=== PATIENT | female | born 1995 | race Caucasian/White ===

== ENCOUNTER → 2018-05-21 12:07 | Outpatient (CLI) | payer BC, SELFPAY | PROVIDERS: Family Provider Family Medicine; PCP Family Medicine; Visit Provider Family Medicine | DX: M95.4 Acquired deformity of chest and rib (principal) | CPT/HCPCS: 71046 ==

== ENCOUNTER → 2018-06-05 12:46 | Outpatient (CLI) | payer BC, SELFPAY ==
--- NOTE | 2018-06-05 12:58 | CT_ITS ---
STUDY: CT CHEST WITHOUT CONTRAST REASON FOR EXAM: Female, 23 years old. Bony prominence. Question rib deformity. RADIATION DOSAGE (If Supplied By Facility): CTDIvol = ( 8.50 ) mGy, DLP = ( 290.94 ) mGycm TECHNIQUE: Transaxial imaging was performed without the administration of intravenous contrast material. Multiplanar coronal and sagittal images were reformatted. Individualized dose optimization techniques were used for this CT. COMPARISON: Chest, May 21, 2018. FINDINGS: The lungs are normal. There is no demonstrated pleural abnormality. Normal heart and pericardium. Normal mediastinum. Normal hilar regions. Normal unenhanced pulmonary arteries. Normal aorta arch and descending thoracic aorta. There is no evidence of fracture. There is mild anterior bowing of the sternal 2 cm the congenital. There is no demonstrated abnormality of the visualized upper abdomen. 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 The study is otherwise unremarkable. Electronically Signed: Reggie Villa DO at 17:04 EDT Tel [phone], Service support ,
== END ==
PROVIDERS: Family Provider Family Medicine; PCP Family Medicine; Visit Provider Family Medicine
DX: M89.8X9 Other specified disorders of bone, unspecified site (principal)
CPT/HCPCS: 71250

== ENCOUNTER → 2021-01-12 | Outpatient (CLI) | payer OTHER, SELFPAY ==
[2022-01-17 16:59] LABS: HPV Reflexed? NOT INDICATED
== END | disposition home or self-care (01) ==
LOC: LABSPEC 01-13 06:46
PROVIDERS: Referring Provider Obstetrics & Gynecology; Visit Provider Obstetrics & Gynecology
DX: Z12.4 Encounter for screening for malignant neoplasm of cervix (principal)
CPT/HCPCS: 88175; G0145

== ENCOUNTER → 2021-03-24 15:30 | Outpatient (CLI) | payer OTHER, SELFPAY ==
[2015-03-04 07:01] VITALS: BMI 30.4
[2021-03-24 17:44] LABS: hCG Titer Quant., Serum 455 mIU/mL (1-3)
== END ==
PROVIDERS: Referring Provider Obstetrics & Gynecology; Visit Provider Obstetrics & Gynecology
DX: Z34.90 Encounter for supervision of normal pregnancy, unspecified, unspecified trimester (principal)
CPT/HCPCS: 36415; 84702

== ENCOUNTER → 2021-03-26 14:51 | Outpatient (CLI) | payer OTHER, SELFPAY ==
[2015-03-04 07:01] VITALS: BMI 30.4
[2021-03-26 16:35] LABS: hCG Titer Quant., Serum 947 mIU/mL (1-3)
== END ==
PROVIDERS: Referring Provider Obstetrics & Gynecology; Visit Provider Obstetrics & Gynecology
DX: N91.2 Amenorrhea, unspecified (principal)
CPT/HCPCS: 36415; 84702

== ENCOUNTER → 2021-04-13 10:56 | Outpatient (CLI) | payer OTHER, SELFPAY ==
[2015-03-04 07:01] VITALS: BMI 30.4
--- NOTE | 2021-04-13 11:02 | US_ITS ---
STUDY: FIRST TRIMESTER OBSTETRICAL ULTRASOUND REASON FOR EXAM: Female, 26 years old early LMP: Unknown. TECHNIQUE: Transvaginal TECHNICAL QUALITY: Adequate. PRIOR ULTRASOUND: None. FINDINGS: There is visualization of a single gestational sac in a normal intrauterine position. The mean sac diameter (MSD) measures 2.2 cm, indicating an estimated gestational age (EGA) of 7 weeks, 0 days. The gestational sac shape is within normal limits. Small subchorionic hematoma measures 1.3 x 1.8 cm. There is a visualized yolk sac. The yolk sac measures 4.5 mm. The placenta is non-visualized due to early . There is visualization of a live embryo. The crown-rump length (CRL) measures 8.6 mm, indicating an estimated gestational age (EGA) of 6 weeks, 6 days. There is demonstrated cardiac activity with a heart rate of 127 bpm. The estimated date of delivery (JB) by US is 12/01/2021. The uterus measures 10.0 x 5.9 x 4.9 cm. There is no demonstrated uterine fibroid. The cervix is closed. The right ovary measures 2.9 x 2.3 x 1.8 cm. There is no right ovarian cyst. There is no visualized right adnexal mass or complex lesion. The left ovary measures 3.5 x 3.5 x 2.6 cm. There is no left ovarian cyst. There is no visualized left adnexal mass or complex lesion. There is no fluid in the cul de sac. US/Transvaginal w/Preg US IMPRESSION: 1. Single live intrauterine correlating to gestational age of 6 weeks and 6 days. 2. 1.8 cm subchorionic fluid collection/hematoma. Electronically Signed: Sp Berg MD (Brooks) at 14:14 EDT , Service support ,
== END ==
PROVIDERS: PCP Family Medicine; Referring Provider Obstetrics & Gynecology; Visit Provider Obstetrics & Gynecology
DX: Z78.9 Other specified health status (principal)
CPT/HCPCS: 76817

== ENCOUNTER → 2021-04-29 10:49 | Outpatient (CLI) | payer OTHER, SELFPAY ==
[2021-04-29 09:56] VITALS: BMI 30.4
[2021-04-29 11:13] LABS: Absolute Lymphocyte Count 1.88 X10^3/uL (0.83-4.51); Absolute Neutrophil Count 5.4 X10^3/uL (2.0-7.7); Basophil# 0.05 X10^3/uL; Basophil% 0.6 % (0-1); Eosinophil# 0.08 X10^3/uL; Hematocrit 39.7 % (37-47); Hemoglobin 13.6 g/dL (12.0-15.0); Lymphocyte # 1.88 X10^3/ul (0.83-4.51); Lymphocyte % 23.2 % (19-41); Mean Corp Hgb Conc 34.3 g/dL (32-36); Mean Corpuscular Hgb 29.1 pg (27.0-32.0); Mean Platelet Vol. 11.1 fl (6.2-12.0); Monocyte# 0.67 X10^3/uL; Monocyte% 8.3 % (0-10); NRBC Flagged by Analyzer 0 % (0-5); Neutrophil % 66.5 % (47-70); Platelet Count 266 K/mm3 (150-450); RBC Distribution Width CV 11.8 % (11.6-14.6); RBC Distribution Width SD 35.7 fl (35.1-43.9); Red Blood Count 4.67 M/mm3 (4.2-5.4); White Blood Count 8.1 K/mm3 (4.4-11.0)
[2021-04-29 12:33] LABS: HIV - WCH Non-Reactive (Nonreactive); Hepatitis B Surface Antigen Non-Reactive (Nonreactive); Hepatitis C Antibody Non-Reactive (Nonreactive); Rubella IgG Reactive (Nonreactive); Syphilis Antibodies Non-reactive
[2021-05-01 03:07] LABS: Chlamydia By Nucleic Acid AMP Negative (Negative)
[2021-05-01 08:34] LABS: Gonococcus By Nucleic Acid AMP Negative (Negative)
== END ==
PROVIDERS: PCP Family Medicine; Referring Provider Obstetrics & Gynecology; Visit Provider Obstetrics & Gynecology
DX: Z34.80 Encounter for supervision of other normal pregnancy, unspecified trimester (principal)
CPT/HCPCS: 36415; 85025; 86703; 86762; 86780; 86803; 86850; 86900; 86901; 87340; 87491; 87591

== ENCOUNTER → 2021-09-07 12:03 | Outpatient (CLI) | payer OTHER, SELFPAY ==
[2021-09-07 12:40] LABS: Absolute Lymphocyte Count 2.07 X10^3/uL (0.83-4.51); Absolute Neutrophil Count 6.7 X10^3/uL (2.0-7.7); Basophil# 0.09 X10^3/uL; Basophil% 0.9 % (0-1); Eosinophil# 0.12 X10^3/uL; Eosinophils% 1.2 % (0-5); Hemoglobin 12.2 g/dL (12.0-15.0); Lymphocyte # 2.07 X10^3/ul (0.83-4.51); Lymphocyte % 20.8 % (19-41); Mean Corp Hgb Conc 33.9 g/dL (32-36); Mean Corpuscular Hgb 30.7 pg (27.0-32.0); Mean Corpuscular Volume 90.7 fL (81-99); Mean Platelet Vol. 10.4 fl (6.2-12.0); NRBC Flagged by Analyzer 0 % (0-5); Neutrophil # 6.72 X10^3/uL (2.7-7.7); Neutrophil % 67.8 % (47-70); Platelet Count 275 K/mm3 (150-450); RBC Distribution Width CV 12.3 % (11.6-14.6); RBC Distribution Width SD 40.7 fl (35.1-43.9); Red Blood Count 3.97 M/mm3 (4.2-5.4); White Blood Count 9.9 K/mm3 (4.4-11.0)
[2021-09-07 13:00] LABS: Glucose Challenge Gest 1H 50g 121 mg/dL (70-140)
== END ==
PROVIDERS: Referring Provider Obstetrics & Gynecology; Visit Provider Obstetrics & Gynecology
DX: Z34.92 Encounter for supervision of normal pregnancy, unspecified, second trimester (principal); Z13.1 Encounter for screening for diabetes mellitus
CPT/HCPCS: 36415; 82950; 85025

== ENCOUNTER 2021-11-05 10:38 | Outpatient (CLI) | payer OTHER, SELFPAY | END 2021-11-05 23:59 | disposition home or self-care (01) | LOC: LABSPEC 10:40 | PROVIDERS: Visit Provider Obstetrics & Gynecology | DX: O99.891 Other specified diseases and conditions complicating pregnancy (principal); R82.90 Unspecified abnormal findings in urine; Z3A.32 32 weeks gestation of pregnancy | CPT/HCPCS: 87081; 87086; 87088 ==

== ENCOUNTER 2021-11-26 10:21 | Outpatient (CLI) | payer OTHER, SELFPAY ==
[2021-11-26 10:34] LABS: Absolute Lymphocyte Count 2.13 X10^3/uL (0.83-4.51); Absolute Neutrophil Count 6.1 X10^3/uL (2.0-7.7); Basophil# 0.06 X10^3/uL; Basophil% 0.6 % (0-1); Eosinophil# 0.12 X10^3/uL; Eosinophils% 1.3 % (0-5); Hematocrit 38.6 % (37-47); Hemoglobin 12.9 g/dL (12.0-15.0); Lymphocyte # 2.13 X10^3/ul (0.83-4.51); Lymphocyte % 22.7 % (19-41); Mean Corp Hgb Conc 33.4 g/dL (32-36); Mean Corpuscular Hgb 29.3 pg (27.0-32.0); Mean Corpuscular Volume 87.7 fL (81-99); Mean Platelet Vol. 11.3 fl (6.2-12.0); Monocyte# 0.83 X10^3/uL; Monocyte% 8.8 % (0-10); NRBC Flagged by Analyzer 0 % (0-5); Neutrophil # 6.06 X10^3/uL (2.7-7.7); Neutrophil % 64.7 % (47-70); Platelet Count 249 K/mm3 (150-450); RBC Distribution Width CV 12.9 % (11.6-14.6); RBC Distribution Width SD 41.2 fl (35.1-43.9); White Blood Count 9.4 K/mm3 (4.4-11.0)
[2021-11-26 10:48] LABS: Protein, Urine (Random) < 6.0 mg/dL (<11.9); Protein:Creat Ratio 192 mg/g CRE (0-200)
[2021-11-26 10:49] LABS: ALB/GLOB Ratio 0.6 RATIO (0.9-2.4); AST(SGOT) 15 U/L (15-37); Alanine Aminotransfer ALT/SGPT 16 U/L (13-56); Albumin, Serum 2.7 g/dL (3.2-5.0); Alkaline Phosphatase 123 U/L (45-117); Anion Gap 6 (5-15); BUN 12 mg/dL (7-18); BUN/Creat Ratio 15.6 RATIO (10-20); Calcium,Total 9.6 mg/dL (8.5-10.1); Chloride 105 mmol/L (98-107); Creatinine, Serum 0.77 mg/dL (0.55-1.02); EST Glomerular Filtration Rate 95 mL/min (>60); Est Glom Filt Rate - Afr Amer 114 mL/min (>60); Globulin 4.8 g/dL (2.2-4.2); Glucose 84 mg/dL (74-106); Potassium 4.5 mmol/L (3.5-5.1); Protein, Total 7.5 g/dL (6.4-8.2); Sodium Level 134 mmol/L (136-145)
== END 2021-11-26 23:59 | disposition home or self-care (01) ==
LOC: PAVLAB 10:22
PROVIDERS: Referring Provider Obstetrics & Gynecology; Visit Provider Obstetrics & Gynecology
DX: H53.9 Unspecified visual disturbance (principal)
CPT/HCPCS: 36415; 80053; 82570; 84156; 85025

== ENCOUNTER 2021-12-02 07:30 | Inpatient (IN) | payer OTHER, SELFPAY ==
[2021-12-02] VITALS (30 sets, daily range): BP systolic 94–136; BP diastolic 55–89; PULSE 67–109; RESP 15–16; TEMP 36.2–37.1; O2SAT 97–100; BMI 31.0
--- NOTE | 2021-12-02 07:39 | HP.PCM.OB_ITS ---
HPI - General General Date of Admission: 12/02/21 HPI Narrative LINDA JORDAN, is a 26 @ 40 weeks 1 day who presents to aL& D with painful contractions. She denies loss of fluid, vaginal bleeding, or dec fm. She states that the pains are becoming worse and she would like an epidural. Maternal Data Information JB Calculator Estimated Delivery Date Method Current WG Current Estimate 12/01/21 Ultrasound #1 40w 1d PFSH PFSH Medical History History of kidney stones Home Medications vit,[id number] [Prenatabs FA] 1 tab PO DAILY 03/04/15 [History Last Taken 11/30/21 08:00 1 tab] breast pump #1 ea 10/13/21 [Rx Last Taken Unknown] Allergy/AdvReac Type Severity Reaction Status Date / Time No Known Allergies Allergy Verified 12/02/21 07:28 Family History Grandfather Diabetes Social History adopted: No household members: spouse and children number of children: 1 Smoking Status: Never smoker alcohol intake: never substance use type: does not use History 2 Elective abortions Hx Para 1 Spontaneous abortions Hx # Term Pregnancies 1 Ectopic pregnancies Hx # Pregnancies Multiple births # of living children 1 Past Pregnancies Del. Date Name GA/Weeks Outcome Route Bth Weight Infant Gen Labor Lgth Anesthesia Del [facility] Provider FOB 03/05/15 [place] 42 live - full term 7.5 lbs Female 20 hr/induced epidural [facility] Efrain Iván Visit Details Expected Delivery Route/Plan Labor Preferences- CB/BF classes: yes labor support person: Kurt labor intervention preferences: [] pain management options preferred: epidural cut cord/dad catch: cord : yes PP control planned: discussed discussed possible routes of delivery and associated risks: [] special requests: [] Plans Covid status: counseled regarding risk of covid in vs vaccination and declined vaccination Flu vaccine: declined Tdap vaccine: declined Rhogam: NA LARC form signed: DECLINED movement and labor precautions reviewed. Problem list reviewed and updated with the most current plan of care details and appropriate orders placed. Relevant counseling for the gestational age provided. Continue routine care and follow up unless otherwise noted in visit notes/problem list details OB Flowsheet Initial Weight: 143 lb Date -?-?-?-?-?-?-?-?-?-?-?-?- EGA Weight BP Urine Prot -?-?-?-?-?-?-?-?-?-?-?-?- Glucose FHR FuHt Pres Dilation -?-?-?-?-?-?-?-?-?-?-?-?- Effaced St Visit Note 04/29/21 -?-?-?-?-?-?-?-?-?-?-?-?- 9w 1d 143 lb 4 oz (+4 oz) 108/84 -?-?-?-?-?-?-?-?-?-?-?-?- 171 -?-?-?-?-?-?-?-?-?-?-?-?- GP - CRL 27mm co nsistent with prior US 05/28/21 -?-?-?-?-?-?-?-?-?-?-?-?- 13w 2d 141 lb 6 oz (-1 lb 10 oz) 118/78 Negative -?-?-?-?-?-?-?-?-?-?-?-?- Negative 160 -?-?-?-?-?-?-?-?-?-?-?-?- GP - no cramping or bleeding. Anatomy scan ordered. 06/25/21 -?-?-?-?-?-?-?-?-?-?-?-?- 17w 2d 141 lb 8 oz (-1 lb 8 oz) 108/80 Negative -?-?-?-?-?-?-?-?-?-?-?-?- Negative 160 -?-?-?-?-?-?-?-?-?-?-?-?- GP - no cramping or bleeding. Anatomy scan scheduled for 07/0807/23/21 -?-?-?-?-?-?-?-?-?-?-?-?- w 2d 149 lb (+6 lb) 104/62 Negative -?-?-?-?-?-?-?-?-?-?-?-?- Negative 145 -?-?-?-?-?-?-?-?-?-?-?-?- Sm- no vb lof go od fm no regular ctx 08/18/21 -?--?-?-?-?-?-?-?-?-?-?-?- 25w 0d 152 lb 8 oz (+9 lb 8 oz) 134/78 Negative -?-?-?-?-?-?-?-?-?-?-?-?- Negative 153 -?-?-?-?-?-?-?-?-?-?-?-?- MH-No VB, LOF. G ood FM. 09/10/21 -?-?-?-?-?-?-?-?-?-?-?-?- 28w 2d 157 lb (+14 lb) 106/80 Negative -?-?-?-?-?-?-?-?-?-?-?-?- Negative 145 28 -?-?-?-?-?-?-?-?-?-?-?-?- SM- no vb lof go od fm no regular ctx 09/23/21 -?-?-?-?-?-?-?-?-?-?-?-?- 30w 1d 158 lb 2 oz (+15 lb 2 oz) 102/78 Negative -?-?-?-?-?-?-?-?-?-?-?-?- Negative 140 30 Cephalic -?-?-?-?-?-?-?-?-?-?-?-?- SM- no vb lof go od fm no reuglar ctx 10/08/21 -?-?-?-?-?-?-?-?-?-?-?-?- 32w 2d 160 lb 2 oz (+17 lb 2 oz) 100/70 Negative -?-?-?-?-?-?-?-?-?-?-?-?- Negative 140 32 Cephalic -?-?-?-?-?-?-?-?-?-?-?-?- SM- no vb lof go od fm no regular ctx 11/05/21 -?-?-?-?-?-?-?-?-?-?-?-?- 36w 2d 167 lb (+24 lb) 122/76 Negative -?-?-?-?-?-?-?-?-?-?-?-?- Negative 160 36 Cephalic 1 -?-?-?-?-?-?-?-?-?-?-?-?- SM- no vb lof go od fm no regular ctx, lost father in law this last week, coping well 11/12/21 -?-?-?-?-?-?-?-?-?-?-?-?- 37w 2d 167 lb 2 oz (+24 lb 2 oz) 118/88 Negative -?-?-?-?-?-?-?-?-?-?-?-?- Negative 140 37 Cephalic -?-?-?-?-?-?-?-?-?-?-?-?- Sm- no vb lof go od fm no regular ctx 11/19/21 -?-?-?-?-?-?-?-?-?-?-?-?- 38w 2d 165 lb (+22 lb) 100/82 Negative -?-?-?-?-?-?-?-?-?-?-?-?- Negative 145 38 Cephalic 1 -?-?-?-?-?-?-?-?-?-?-?-?- 60 -2 SM- no vb lof good fm no regular ctx 11/26/21 -?-?-?-?-?-?-?-?-?-?-?-?- 39w 2d 167 lb 4 oz (+24 lb 4 oz) 119/86 Negative -?-?-?-?-?-?-?-?-?-?-?-?- Negative 136 37 Cephalic 2 -?-?-?-?-?-?-?-?-?-?-?-?- 80 -2 JV-no lof, vaginal bleeding, or dec fm. pt has some complaints of warm feeling in neck and soem blurriness that she is blaming on her contacts. her diastolic bp was slightly elevated. sending for [facility] labs. 12/02/21 -?-?-?-?-?-?-?-?-?-?-?-?- 40w 1d 169 lb 8.568 oz (+26 lb 8.568 oz) 131/89 -?-?-?-?-?-?-?-?-?-?-?-?- -?-?-?-?-?-?-?-?-?-?-?-?- NST FHR Rate Baby A Baseline: 140 Variability:: Moderate Accelerations:: 15 x 15 Decelerations:: None NST Reactive:: Yes FHR Category:: Category I Uterine Activity:: q 2 minutes ROS Constitutional Constitutional: Denies change in weight, fatigue, fever(s), headache(s), poor appetite or weakness Eyes Eyes: Denies blurry vision, change in vision, seeing flashes or spots in vision ENT HEENT: Denies dizziness, headache(s), loss taste/smell or sore throat Cardiovascular Cardiovascular: Denies chest pain, dizziness, dyspnea, irregular heart rhythm, leg edema, palpitations, rapid heart rate or vomiting Respiratory/Chest Respiratory/Chest: Denies chest tightness, cough, dyspnea or breast pain Gastrointestinal Gastrointestinal: Denies abdominal pain, anorexia, constipation, cramping, diarrhea, hemorrhoids, vomiting or weight changes Genitourinary Genitourinary: Denies dysuria, flank pain, genital lesions, genital pain, urinary frequency or urinary urgency Musculoskeletal Musculoskeletal: Denies back pain, difficulty walking, joint pain, limited range of motion, muscle cramps or numbness Integumentary Integumentary: Denies lesions or unusual bruising Neurologic Neurologic: Denies abnormal movements, abnormal speech, dizziness, numbness, seizure-like activity or syncope Psychiatric Psychiatric: Denies anxiety, behavioral changes, change in appetite, change in libido, cognitive impairment, confusion, depression, difficulty concentrating, hallucinations or suicidal thoughts Endocrine Endocrinology: Denies excessive sweating, polydipsia or polyuria Hematologic/Lymphatic Hematologic/Lymphatic: Denies easy bleeding, easy bruising or lymphadenopathy Allergic/Immunologic Allergic/Immunologic: Denies itchy eyes, lip swelling, seasonal rhinorrhea, rhinitis, throat swelling, tongue swelling, eczemia, wheezing or asthma Vital Signs Vital Signs Vital Signs: 12/02/21 07:31 12/02/21 07:36 Temperature 98.1 F Temperature Source Temporal Pulse Rate 85 Blood Pressure 131/89 H BP Systolic 131 BP Diastolic 89 Weight Weight: 169 lb 8.568 oz Body Mass Index (BMI) 31.0 Physical Exam Const alert, oriented x3, no apparent distress and healthy appearing General Appearance: cooperative; Negative for anxious HEENT normocephalic Face and Sinus: normal facial exam Eyes EOMs intact bilaterally and no scleral icterus General Eye: normal appearance of both eyes Neck full ROM and supple Lymph Lymphatic: no lymphadenopathy noted Chest Chest: abnormal inspection of the chest Resp normal respiratory effort Effort and Inspection: able to speak in complete sentences Cardio regular rate GI soft to palpation and non-tender Inspection: gravid Palpation: soft; Negative for tender external exam normal Amniotic Fluid: ROM+plus Back/Spine no CVA tenderness Extremity normal to inspection, full ROM and no clubbing, cyanosis or edema General Extremity: Negative for calf tenderness or edema Skin Lesions: no lesions Rashes: no rashes Psych mental status grossly normal Labs Labs Labs: Blood Type A POSITIVE Antibody Screen NEGATIVE Hct 38.6 % (37-47) Hgb 12.9 g/dL (12.0-15.0) Obstetrics US Syphilis Total Ab Non-reactive Rubella IgG Antibody Reactive (Nonreactive) Hep Bs Antigen Non-Reactive (Nonreactive) Neisseria gonorrhoeae DNA (JAME) Negative (Negative) HIV 1&2 Antibody Non-Reactive (Nonreactive) Glucose 1 Hr 50 gm 121 mg/dL (70-140) Assessment & Plan (1) : QUALIFIERS: Weeks of gestation: 37 weeks Qualified Code(s): Z3A.37 - 37 weeks gestation of COMMENT: Declines ntd, genetic and carrier screen. Anatomy US normal. GBS neg (2) Supervision of other normal : COMMENT: PRR JB 12/01/21 girl PC: [place]. Spouse: Kurt(his first). PLAN: Patient presents IAL, plan expectant management for , pitocin/AROM PRN if needed. Pain management: plans epidural. GBS negative . Management of any complications: none I have reviewed the [facility] and made any clinically relevant updates.
[2021-12-02] MEDS: Lactated Ringers 500 ML 999 ML IV (07:50)
[2021-12-02] MEDS: Lactated Ringers 1,000 ML 50 ML IV (07:50)
[2021-12-02 08:09] LABS: Absolute Lymphocyte Count 2.48 X10^3/uL (0.83-4.51); Absolute Neutrophil Count 7.3 X10^3/uL (2.0-7.7); Basophil# 0.09 X10^3/uL; Basophil% 0.8 % (0-1); Eosinophil# 0.11 X10^3/uL; Hematocrit 36.2 % (37-47); Hemoglobin 12.9 g/dL (12.0-15.0); Lymphocyte # 2.48 X10^3/ul (0.83-4.51); Lymphocyte % 22.2 % (19-41); Mean Corp Hgb Conc 35.6 g/dL (32-36); Mean Corpuscular Hgb 30.5 pg (27.0-32.0); Mean Corpuscular Volume 85.6 fL (81-99); Mean Platelet Vol. 11.9 fl (6.2-12.0); Monocyte# 0.98 X10^3/uL; Monocyte% 8.8 % (0-10); NRBC Flagged by Analyzer 0 % (0-5); Neutrophil # 7.28 X10^3/uL (2.7-7.7); Neutrophil % 65.2 % (47-70); Platelet Count 227 K/mm3 (150-450); RBC Distribution Width CV 12.7 % (11.6-14.6); RBC Distribution Width SD 39.5 fl (35.1-43.9); Red Blood Count 4.23 M/mm3 (4.2-5.4); White Blood Count 11.2 K/mm3 (4.4-11.0)
[2021-12-02] MEDS: Ondansetron 4 MG/2 ML Vial IV (08:29)
[2021-12-02] MEDS: fentaNYL-bupivacaine (epidural) 100 ML BAG EPIDURAL (08:52)
[2021-12-02] MEDS: Oxytocin 30 units/NS 500 ml 30 UNITS/500 ML IV.SOLN 334 UNITS IV (11:04)
--- NOTE | 2021-12-02 11:16 | OP.PCM_ITS ---
Assessment & Plan (1) : QUALIFIERS: Weeks of gestation: 37 weeks Qualified Code(s): Z3A.37 - 37 weeks gestation of COMMENT: Declines ntd, genetic and carrier screen. Anatomy US normal. GBS neg (2) Supervision of other normal : COMMENT: PRR JB 12/01/21 girl PC: [place]. Spouse: Kurt(his first). Maternal Data Information JB Calculator Estimated Delivery Date Method Current WG Current Estimate 12/01/21 Ultrasound #1 40w 1d Vaginal Delivery Maternal Presentation Maternal Presentation: Active Labor Operative Information Date of Procedure: 12/02/21 Pre-Operative Diagnosis: @ 40 weeks 1 day, active labor Post-Operative Diagnosis: @ 40 weeks 1 day, active labor Type of Anesthesia: Epidural Estimated Blood Loss: 100cc Findings Description of Procedure: Patient began pushing and delivered the head in the MARIA DE JESUS presentation. The head was delivered atraumatically and a loose nuchal cord ?1 was identified and easily reduced over the 's head. The anterior and posterior shoulders delivered without complication followed by the rest of the and the was placed on the maternal abdomen. Delayed cord clamping was employed for approximately 60 seconds. Cord was clamped and cut and gentle traction was applied to the cord and the placenta delivered spontaneously immediately following it was noted to be intact with three-vessel cord. The perineum and vagina were inspected and noted to have no laceration. EBL was 100 cc. Patient and infant tolerated delivery well. Presentation: Vertex Amniotic Membrane Rupture Type: Spontaneous Amniotic Fluid Description: Clear Placental Delivery Description: Spontaneous Placenta Disposition: [facility] Cord Vessel Description: 3 Vessels Cord Entanglement: Around neck x 1, loose Nuchal Cord Compression: Without compression A Gender: Female (1 minute): 8 (5 minute): 9 Delayed Cord Clamping: Yes Post Vaginal Delivery Medications Given After Delivery: IV Pitocin Episiotomy Description: None Laceration: None Complication Complications: None Multi Select Codes Urinary/Genital Urinary/Genital CPT Codes: 95254 Vaginal Delivery [facility]
[2021-12-02] MEDS: Acetaminophen 500 MG Tablet 1000 MG PO (20:52)
[2021-12-03 00:01] VITALS: BP 98/54; PULSE 72; RESP 16; TEMP 36.3
[2021-12-03 03:52] VITALS: BP 110/76; PULSE 68; RESP 14; TEMP 36.6
--- NOTE | 2021-12-03 06:27 | PCM.DC ---
Discharge Instructions Diet Discharge Diet: No restrictions Activity Discharge Activity: Return to Normal Activity, May Not Drive (while taking narcotic pain medications.) and May Shower May resume sexual activity in: 4-6 weeks Dressing / Incision Call your doctor if your incision/area has: Continuous Slow Oozing, Sudden Increased Bleeding, Increased Pain/ Swelling, Increased Redness and Foul Smelling Discharge Follow Up Care Please Follow Up With: Sachi Hair DO When: Call [phone] to make an appointment with your doctor in 6 weeks. If you had elevated blood pressure or 4th degree laceration, you will need to be seen in 2 weeks. Test Results: Test results from this visit will be discussed in further detail at your follow-up appointment, if applicable. Discharge Plan Admission Admit Date/Time: 12/02/21 07:30 Primary Reason for Your Visit: vaginal delivery Attending Provider: Sachi Hair Primary Care Provider: Ricky Burks,Christa Primary Discharge Orders/Prescriptions Prescriptions: New ibuprofen 800 mg tablet 800 mg PO Q8H PRN (Reason: pain) 7 Days Qty: 30 RF: 0 Continued Prenatabs FA 1 TABLET tablet 1 tab PO DAILY RF: 0 (DME) breast pump Device See Rx Instructions .ROUTE .MEDSUPPLY Qty: 1 RF: 0 Referrals / Follow Up: Care Physician,No Primary [Primary Care Provider] - Disposition Disposition (needs filled in before D/C Order can be placed): Home, Self Care
--- NOTE | 2021-12-03 07:19 | PCM.PN.OB ---
Subjective Subjective Patient doing well without complaints. Tolerating PO. Ambulating and voiding without difficulty. Feeding well. Denies chest pain, shortness of breath, calf pain/swelling, fevers, chills, lightheadedness. Objective Data Objective Data Vital Signs: Vital Signs Temp Pulse Resp BP Pulse Ox 98 F 68 14 110/76 97 12/03/21 03:52 12/03/21 03:52 12/03/21 03:52 12/03/21 03:52 12/02/21 16:20 Oxygen Delivery Method Room Air Weight: 169 lb 8.568 oz Body Mass Index (BMI) 31.0 Intake & Output: Intake and Output for Last 24 Hours 12/01/21 12/02/21 12/03/21 23:59 23:59 23:59 Intake Total 1534.16 / 1534.16 Output Total 1700 / 1700 Balance -165.84 / -165.84 Lab / Micro Data Result Diagrams: 12/02/21 07:50 Labs: Laboratory Results - last 24 hr 12/02/21 07:50: WBC 11.2 H, RBC 4.23, Hgb 12.9, Hct 36.2 L, MCV 85.6, MCH 30.5, MCHC 35.6, RDW Std Deviation 39.5, RDW Coeff of Daisy 12.7, Plt Count 227, MPV 11.9, Immature Gran % (Auto) 2.000 H, Neut % (Auto) 65.2, Lymph % (Auto) 22.2, [place] % (Auto) 8.8, Eos % (Auto) 1.0, Baso % (Auto) 0.8, Absolute Neuts (auto) 7.3, Absolute Lymphs (auto) 2.48, Nucleated RBC % 0 12/02/21 07:50: Blood Type A POSITIVE, Antibody Screen NEGATIVE Micro: Microbiology 12/02/21 08:05 Nasal Secretion SARS-CoV-2 Antigen (Rapid) - Final Assessment & Plan (1) Vaginal delivery: COMMENT: delivered 12/01/21 baby girl [place] PLAN: s/p PPD # 1 1. routine post delivery care 2. breast feeding- support given 3. rh positive 4. rubella immune 5. dc tonight
[2021-12-03 07:37] VITALS: BP 113/66; PULSE 83
[2021-12-03 07:41] VITALS: BP 113/66; PULSE 83; RESP 18; TEMP 36.3
[2021-12-03] MEDS: Prenatal Vits Tablet 1 TABLET PO (09:34)
[2021-12-03 12:40] VITALS: BP 105/68; PULSE 82; RESP 18; TEMP 36.8
[2021-12-03 12:41] VITALS: BP 105/68; PULSE 82
== END 2021-12-03 13:46 | disposition home or self-care (01) | DRG 807 ==
LOC: WPOUT 07:36 → WP 07:36
PROVIDERS: Admitting Provider Obstetrics & Gynecology; Referring Provider Obstetrics & Gynecology; Visit Provider Obstetrics & Gynecology
DX: O69.81X0 Labor and delivery complicated by cord around neck, without compression, not applicable or unspecified (principal); Z37.0 Single live birth; Z3A.40 40 weeks gestation of pregnancy
CPT/HCPCS: 59025; 59050; 85025; 86850; 86900; 86901; 87426; 99218; J7120; G0378; J2405

== ENCOUNTER 2022-10-12 10:35 | Emergency (ER) | payer OTHER, SELFPAY ==
[2022-10-12 10:37] VITALS: BP 131/71; PULSE 91; RESP 18; TEMP 36.2; O2SAT 96; BMI 28.9
--- NOTE | 2022-10-12 10:56 | EX.ED.DYSGE1 ---
HPI History of Present Illness Chief Complaint: Flank Pain Informant: patient Onset/Context/Timing Onset: Today Context: Sudden Onset Timing: Continuous Quality: Dull Location: Left flank Worsened by: Nothing Relieved by: Nothing Narrative Narrative: Patient presents with left flank pain that began today. Patient states it began rather suddenly. Patient states it has been constant. Patient states nothing makes it better nothing makes it worse. Patient states she is unable to find position of comfort. Patient denies any fevers or chills. Patient denies any dysuria or hematuria. Patient admits to some nausea and vomiting because of the pain. Patient states pain radiates into her back. Patient states she has had a prior kidney stone but it was a long time ago and she does not member if this is similar to the pain she had with her prior kidney stone. [facility] Medical History History of kidney stones Home Medications vits,calcium no.78-iron fumarate-folic acid 29 mg-1 mg tablet (Prenatabs FA) 1 tab PO DAILY 03/04/15 [History Last Taken 11/30/21 08:00 1 tab] hydrocodone-acetaminophen 5-325mg 5mg-325mg 1 tab PO Q6H PRN PRN Pain 3 days #10 TABLETS 10/12/22 [Rx Last Taken Unknown] Allergy/AdvReac Type Severity Reaction Status Date / Time No Known Allergies Allergy Verified 10/12/22 10:40 Family History Grandfather Diabetes Surgical History no surgical history no surgical history Social History adopted: No household members: spouse and children number of children: 2 Smoking Status: Former smoker alcohol intake: never substance use type: does not use ROS ROS ED Constitutional Constitutional ED: Denies chills or fever(s) Eyes Eyes: Denies blurry vision or change in vision ENT ENT ED: Denies rhinorrhea or sore throat Cardiovascular Cardiovascular: Denies chest pain or palpitations Respiratory/Chest Respiratory/Chest: Denies cough or dyspnea Gastrointestinal Gastrointestinal: Reports nausea and vomiting Genitourinary Genitourinary ED: Denies dysuria or hematuria Musculoskeletal Musculoskeletal: Reports back pain; Denies neck pain Integumentary Denies abscess or rash Neurologic Neurologic: Denies headache(s) or weakness Allergic/Immunologic Allergic/Immunologic ED: Denies mouth swelling or urticaria EXAM Physical Exam Const Vital Signs: 10/12/22 10:37 10/12/22 12:38 10/12/22 14:08 Temperature 97.2 F L Temperature Source Temporal Pulse Rate 91 Respiratory Rate 18 16 16 Blood Pressure 131/71 H Blood Pressure Mean 91 Pulse Ox 96 Oxygen Delivery Method Room Air Room Air Positive well nourished and well developed General Appearance ED: well developed HEENT Reports moist mucous membranes Neck supple and no JVD Resp normal respiratory effort and clear to auscultation bilaterally Cardio regular rate, regular rhythm and no murmurs GI normal to inspection, nondistended, normoactive bowel sounds Palpation: soft and tender LUQ; Negative for guarding or rebound tenderness present Back/Spine no CVA tenderness Extremity normal to inspection General Extremety ED: Negative for edema or tenderness General Extremity: Negative for edema Neuro oriented x3, CN's II-XII intact bilaterally and no sensory deficits noted Sensorium / Orientation: alert Motor Exam: strength 5/5 throughout Psych Mood & Affect: anxious Skin no rashes or lesions noted MDM MDM MDM Narrative Medical decision making narrative: Patient was given IV fluids and morphine here. CBC was obtained and was reviewed. There is a mild leukocytosis of 11.7. The remainder was within normal limits. Comprehensive metabolic profile was obtained and was reviewed. This was within normal limits. Serum hCG was obtained and was reviewed. This was negative. Urinalysis was obtained and was reviewed. Occult blood was 150. There were 10-25 red blood cells. There is no evidence of urinary tract infection. Patient was still having pain. Patient was given a repeat dose of morphine and a dose of Toradol. CT scan of the abdomen pelvis without contrast was obtained. On my independent review, there is a left distal ureteral calculus with hydronephrosis and hydroureter. Radiologist also interpreted the CT scan. Radiologist measured the calculus at 5 mm. There is also a left renal calculus noted that is not obstructing. Patient was advised of her findings. Patient is feeling better on reevaluation. Patient was given a prescription for a short course of [place]. Patient was instructed to drink plenty of fluids. Patient was instructed to follow-up with her primary care physician in 5 to 7 days. Patient was also given referral for urology. Patient understood and was agreeable with the plan. All questions were answered. Lab Data Attestation: I reviewed the patient's lab results. Labs: Laboratory Results - last 24 hr 10/12/22 10/12/22 10/12/22 10:55 10:55 10:55 WBC 11.7 H RBC 5.05 Hgb 13.9 Hct 41.6 MCV 82.4 MCH 27.5 MCHC 33.4 RDW Std Deviation 36.1 RDW Coeff of Daisy 12.1 Plt Count 366 MPV 10.2 Immature Gran % (Auto) 0.400 Neut % (Auto) 72.4 H Lymph % (Auto) 19.4 [place] % (Auto) 6.0 Eos % (Auto) 0.9 Baso % (Auto) 0.9 Absolute Neuts (auto) 8.5 H Absolute Lymphs (auto) 2.28 Nucleated RBC % 0 Sodium 140 Potassium 3.8 Chloride 107 Carbon Dioxide 24.0 Anion Gap 9 BUN 13 Creatinine 0.91 Estim Creat Clear Calc 68.83 Est GFR (MDRD) Af Amer 93 Est GFR (MDRD) Non-Af 77 BUN/Creatinine Ratio 14.3 Glucose 105 Calcium 9.6 Total Bilirubin 0.40 AST 12 L ALT 21 Alkaline Phosphatase 82 Total Protein 7.9 Albumin 3.6 Globulin 4.3 H Albumin/Globulin Ratio 0.8 L Serum , Qual NEGATIVE Urine Color Urine Clarity Urine pH Ur Specific Hermon Urine Protein Urine Glucose (UA) Urine Ketones Urine Occult Blood Urine Nitrite Urine Bilirubin Urine Urobilinogen Ur Leukocyte Esterase Urine RBC Urine WBC Ur Squamous Epith Cells Amorphous Sediment Urine Bacteria Urine Mucus 10/12/22 13:35 WBC RBC Hgb Hct MCV MCH MCHC RDW Std Deviation RDW Coeff of Daisy Plt Count MPV Immature Gran % (Auto) Neut % (Auto) Lymph % (Auto) [place] % (Auto) Eos % (Auto) Baso % (Auto) Absolute Neuts (auto) Absolute Lymphs (auto) Nucleated RBC % Sodium Potassium Chloride Carbon Dioxide Anion Gap BUN Creatinine Estim Creat Clear Calc Est GFR (MDRD) Af Amer Est GFR (MDRD) Non-Af BUN/Creatinine Ratio Glucose Calcium Total Bilirubin AST ALT Alkaline Phosphatase Total Protein Albumin Globulin Albumin/Globulin Ratio Serum , Qual Urine Color Yellow Urine Clarity Clear Urine pH 7.0 Ur Specific Hermon 1.015 Urine Protein 15 H Urine Glucose (UA) Normal Urine Ketones 50 H Urine Occult Blood 150 H Urine Nitrite Negative Urine Bilirubin Negative Urine Urobilinogen Normal Ur Leukocyte Esterase Negative Urine RBC 10-25 SEEN Urine WBC 0 SEEN Ur Squamous Epith Cells 0-5 SEEN Amorphous Sediment 1+ Urine Bacteria 0 SEEN Urine Mucus 0 SEEN Radiography Diagnostic Testing: Clinical Impression(s) from Imaging Studies Abdomen/Pelvis CT 10/12/22 10:59 IMPRESSION: Obstructive 5 mm left ureteral stone at the UV junction. Left nephrolithiasis. Electronically Signed: Donato Cordero MD at 12:12 EST , Discharge Plan Triage Chief Complaint: Flank Pain ED Provider: Adrien Parks Dx/Rx/DC Orders Clinical Impression: Calculus of distal left ureter, Left flank pain Instructions: ED Kidney Stone w/ Colic Prescriptions: New hydrocodone-acetaminophen [hydrocodone-acetaminophen] 5-325 mg tablet 1 tab PO Q6H PRN PRN (Reason: Pain) 3 Days Qty: 10 0RF No Action Prenatabs FA 1 TABLET tablet 1 tab PO DAILY Primary Care Provider: Care Physician,No Primary Referrals: Darius Cruz MD [Med Staff - Active Staff] - 3-5 Days Geoff Humphries DO [Med Staff - Pain Medicine Physician] - 5-7 Days Care Physician,No Primary [Primary Care Provider] - Disposition Disposition: Home, Self Care Discharge Date/Time: 10/12/22 14:32
--- NOTE | 2022-10-12 10:59 | CT_ITS ---
EXAM: CT ABDOMEN AND PELVIS WITHOUT INTRAVENOUS CONTRAST CLINICAL INDICATION: Flank pain TECHNIQUE: Helically acquired images were obtained of the abdomen and pelvis without intravenous contrast. This CT exam was performed using one or more of the following dose reduction techniques: automated exposure control, adjustment of the mA and/or kV according to patient size, and/or use of iterative reconstruction technique. This report was created using [employer] report generation technology. COMPARISON: None. FINDINGS: LOWER THORAX: Normal. Lung bases are clear. No cardiomegaly. No pericardial effusion. ABDOMEN: LIVER: Normal. Homogeneous. GALLBLADDER AND BILE DUCTS: Normal. No calcified gallstones. No gallbladder distention or wall edema. No intra- or extrahepatic biliary ductal dilation. PANCREAS: Normal. No focal cystic mass. SPLEEN: Normal. Normal size without focal cystic or solid mass. ADRENALS: Normal. No nodules. KIDNEYS AND URETERS: 5 mm left ureteral stone identified adjacent to the ureterovesical junction associated with distended left renal collecting system and mild left perinephric edema. Small stones are present within the lower pole calyces of the left kidney. Right kidney has a normal appearance. STOMACH AND BOWEL: Normal. No bowel distention. No focal inflammatory change. PELVIS: APPENDIX: No evidence of acute appendicitis. BLADDER: Normal. REPRODUCTIVE: Unremarkable as visualized. No mass. ABDOMEN and PELVIS: INTRAPERITONEAL SPACE: Normal. No ascites or other fluid collection. No free air. BONES/JOINTS: Normal. No suspicious lytic or blastic abnormality. SOFT TISSUES: Normal. No discrete abdominal or pelvic wall hernia. VASCULATURE: Normal. Abdominal aorta is non-dilated. LYMPH NODES: Normal. No enlarged lymph nodes. CT/Abdomen/Pelvis without Cont IMPRESSION: Obstructive 5 mm left ureteral stone at the UV junction. Left nephrolithiasis. Electronically Signed: Donato Cordero MD at 12:12 EST ,
[2022-10-12] MEDS: Ondansetron 4 MG/2 ML Vial IV (11:09)
[2022-10-12] MEDS: Morphine 4 MG/ML Syringe IV ×2 (11:09→11:52)
[2022-10-12] MEDS: 0.9% Normal Saline 1,000 ML 1000 ML IV (11:09)
[2022-10-12 11:10] LABS: Absolute Lymphocyte Count 2.28 X10^3/uL (0.83-4.51); Absolute Neutrophil Count 8.5 X10^3/uL (2.0-7.7); Basophil% 0.9 % (0-1); Eosinophil# 0.11 X10^3/uL; Eosinophils% 0.9 % (0-5); Hematocrit 41.6 % (37-47); Hemoglobin 13.9 g/dL (12.0-15.0); Lymphocyte # 2.28 X10^3/ul (0.83-4.51); Lymphocyte % 19.4 % (19-41); Mean Corp Hgb Conc 33.4 g/dL (32-36); Mean Corpuscular Hgb 27.5 pg (27.0-32.0); Mean Corpuscular Volume 82.4 fL (81-99); Mean Platelet Vol. 10.2 fl (6.2-12.0); Monocyte# 0.71 X10^3/uL; NRBC Flagged by Analyzer 0 % (0-5); Neutrophil # 8.49 X10^3/uL (2.7-7.7); Neutrophil % 72.4 % (47-70); Platelet Count 366 K/mm3 (150-450); RBC Distribution Width CV 12.1 % (11.6-14.6); RBC Distribution Width SD 36.1 fl (35.1-43.9); Red Blood Count 5.05 M/mm3 (4.2-5.4); White Blood Count 11.7 K/mm3 (4.4-11.0)
[2022-10-12 11:24] LABS: ALB/GLOB Ratio 0.8 RATIO (0.9-2.4); AST(SGOT) 12 U/L (15-37); Alanine Aminotransfer ALT/SGPT 21 U/L (13-56); Albumin, Serum 3.6 g/dL (3.2-5.0); Alkaline Phosphatase 82 U/L (45-117); Anion Gap 9 (5-15); BUN 13 mg/dL (7-18); BUN/Creat Ratio 14.3 RATIO (10-20); Calcium,Total 9.6 mg/dL (8.5-10.1); Chloride 107 mmol/L (98-107); Creatinine, Serum 0.91 mg/dL (0.55-1.02); EST Glomerular Filtration Rate 77 mL/min (>60); Est Glom Filt Rate - Afr Amer 93 mL/min (>60); Estimated Creatinine Clearance 68.83 ml/min; Globulin 4.3 g/dL (2.2-4.2); Glucose 105 mg/dL (74-106); Potassium 3.8 mmol/L (3.5-5.1); Protein, Total 7.9 g/dL (6.4-8.2); Sodium Level 140 mmol/L (136-145)
[2022-10-12 11:34] LABS: Internal QC Validated? YES +Cl - CLEAR BKGD; Pregnancy, Serum, hCG Quali. NEGATIVE Negative
[2022-10-12] MEDS: Ketorolac 30 MG/ML Syringe IV (11:51)
[2022-10-12 12:38] VITALS: RESP 16
[2022-10-12 13:48] LABS: Bacteria 0 SEEN /hpf (None Seen); Mucous, Urine 0 SEEN /hpf (<or=2+); White Blood Cells 0 SEEN /hpf (0-5)
[2022-10-12 14:07] LABS: Glucose, Dipstick Normal (Normal); Ketone-Dipstick 50 mg/dl (Negative); Leukocyte Esterase-Dipstick Negative /ul (Negative); Nitrite-Dipstick Negative (Negative); Occult Blood-Urine 150 /ul (Negative); Protein-Dipstick 15 mg/dl (Negative); Specific Gravity, Urine 1.015 (1.002-1.030); Urine Bilirubin Dipstick Negative (Negative); Urine Urobilinogen Normal (Normal)
[2022-10-12 14:08] VITALS: RESP 16
[2022-10-12 14:11] LABS: Color, Urine Yellow (Yellow); Urine Clarity Clear (Clear)
[2022-10-12 14:24] LABS: Amorphous Sediment 1+; Red Blood Cells-Urine 10-25 SEEN /hpf (0-5); Squamous Epithelial Cells - UA 0-5 SEEN /hpf (5-10)
== END 2022-10-12 14:32 | disposition home or self-care (01) ==
PROVIDERS: Emergency Provider Emergency Medicine; Visit Provider Emergency Medicine
DX: N13.2 Hydronephrosis with renal and ureteral calculous obstruction (principal); Z87.442 Personal history of urinary calculi; Z87.891 Personal history of nicotine dependence
CPT/HCPCS: 74176; 80053; 81001; 84703; 85025; 96361; 96374; 96375; 96376; 99283; J7030; A4216; J2405

== ENCOUNTER → 2022-11-21 | Outpatient (CLI) | payer OTHER, SELFPAY ==
[2022-11-21 12:50] LABS: Mucous, Urine 0 SEEN /hpf (<or=2+); Red Blood Cells-Urine 0 SEEN /hpf (0-5); White Blood Cells 0 SEEN /hpf (0-5)
[2022-11-21 13:02] LABS: Color, Urine Yellow (Yellow); Glucose, Dipstick Normal (Normal); Ketone-Dipstick 15 mg/dl (Negative); Leukocyte Esterase-Dipstick Negative /ul (Negative); Nitrite-Dipstick Negative (Negative); Occult Blood-Urine Negative /ul (Negative); Protein-Dipstick 15 mg/dl (Negative); Specific Gravity, Urine 1.015 (1.002-1.030); Urine Bilirubin Dipstick Negative (Negative); Urine Clarity Sl. Cloudy (Clear); Urine Urobilinogen Normal (Normal)
[2022-11-21 13:09] LABS: Bacteria 1+ /hpf (None Seen); Squamous Epithelial Cells - UA 5-10 SEEN /hpf (5-10)
== END | disposition home or self-care (01) ==
PROVIDERS: Visit Provider Physician Assistant Surgical
DX: N39.0 Urinary tract infection, site not specified (principal)
CPT/HCPCS: 81001; 87086; 87088

== ENCOUNTER → 2022-11-23 | Outpatient (CLI) | payer OTHER, SELFPAY | END | disposition home or self-care (01) | LOC: LABSPEC 13:37 | PROVIDERS: PCP Family Medicine; Visit Provider Family Medicine | DX: N39.0 Urinary tract infection, site not specified (principal) | CPT/HCPCS: 87086; 87088 ==

== ENCOUNTER → 2024-11-06 | Outpatient (CLI) | payer BC, SELFPAY ==
[2024-11-06 11:22] LABS: HIV - WCH Non-Reactive (Nonreactive); Syphilis Antibodies Non-reactive
[2024-11-09 09:08] LABS: Chlamydia By Nucleic Acid AMP Negative (Negative); Gonococcus By Nucleic Acid AMP Negative (Negative)
== END | disposition home or self-care (01) ==
PROVIDERS: PCP Family Medicine; Referring Provider Advanced Practice Midwife; Visit Provider Advanced Practice Midwife
DX: B00.9 Herpesviral infection, unspecified (principal)
CPT/HCPCS: 36415; 86695; 86696; 86703; 86780; 87070; 87077; 87186; 87205; 87491; 87591